=== PATIENT | female | born 1975 | race Caucasian/White ===

== ENCOUNTER → 2019-01-19 | Outpatient (CLI) | payer OTHER ==
[~2019-01-19] MED LIST: BUSP5 PO; Bentyl10 MG; LOSA25 PO; Zantac150 MG PO
[2019-01-21 14:07] LABS: HPV 16 Negative (Negative); HPV 18 Negative (Negative); HPV OTHER HR TYPES Positive (Negative)
== END ==
LOC: LAB 15:30 → LAB SHORT 15:30
PROVIDERS: Registered Nurse Community Health
DX: Z12.4 Encounter for screening for malignant neoplasm of cervix (principal); N89.8 Other specified noninflammatory disorders of vagina; Z98.890 Other specified postprocedural states
CPT/HCPCS: 87070; 87205; 87624; 87625; G0123

== ENCOUNTER 2019-02-02 07:11 | Day surgery (SDC) | payer OTHER ==
[~2019-02-02] VITALS: Ht 160 cm; Wt 74.8 kg
[2019-02-02] MEDS ORDERED: Zantac150 MG PO (07:58)
[2019-02-02] MEDS ORDERED: LOSA25 PO (07:59)
[2019-02-02] MEDS ORDERED: Bentyl10 MG (07:59)
[2019-02-02] MEDS ORDERED: BUSP5 PO (07:59)
--- NOTE | 2019-02-02 10:03 | NUR ---
02/02/19 1003 Shannon Chinchilla RECIEVED REPORT FROM [facility] 0930 PT INTO RECLINER WITHOUT DIFFICULTY. PT RATES ABD PAIN 6/10 AND THROAT PAIN 6/10. NO ORDERS AT THIS TIME. WARM BLANKET APPLIED AND PT DRINKING PO FLUIDS WITHOUT DIFFICULTY. PT PLEASANT, CONVERSATING WITH FRIEND AT CHAIRSIDE. DR COLVIN TALKED WITH PT AT 0945 AND CALLED IN A PRESCRIPTION TO HER PHARMACY FOR CRAMPING. AWARE OF ELEVATED BP. OK TO DC. PT STATED ABD PAIN DECREASED TO A 4 AFTER BELCHING. PT SBA TO CAR.
[2019-02-03 17:07] LABS: T-TRANSGLUTAMINASE (TTG) IGA <2 U/mL (0-3); T-TRANSGLUTAMINASE (TTG) IGG <2 U/mL (0-5)
== END 2019-02-02 09:58 | disposition home or self-care (01) ==
LOC: ORSCSDS 07:11
PROVIDERS: Internal Medicine Gastroenterology
PROC: 0DBN8ZX Excision of Sigmoid Colon, Via Natural or Artificial Opening Endoscopic, Diagnostic (ICD-10-PCS; principal; 2019-02-02 08:30)
PROC: 0DB98ZX Excision of Duodenum, Via Natural or Artificial Opening Endoscopic, Diagnostic (ICD-10-PCS; principal; 2019-02-02 08:30)
PROC: 0DB68ZX Excision of Stomach, Via Natural or Artificial Opening Endoscopic, Diagnostic (ICD-10-PCS; principal; 2019-02-02 08:30)
PROC: 0DBL8ZX Excision of Transverse Colon, Via Natural or Artificial Opening Endoscopic, Diagnostic (ICD-10-PCS; principal; 2019-02-02 08:30)
DX: R19.4 Change in bowel habit (principal); D12.3 Benign neoplasm of transverse colon; R10.9 Unspecified abdominal pain; K21.0 Gastro-esophageal reflux disease with esophagitis; K29.70 Gastritis, unspecified, without bleeding; D37.4 Neoplasm of uncertain behavior of colon; K29.80 Duodenitis without bleeding; K44.9 Diaphragmatic hernia without obstruction or gangrene; K57.30 Diverticulosis of large intestine without perforation or abscess without bleeding; K64.8 Other hemorrhoids; K64.4 Residual hemorrhoidal skin tags; I10 Essential (primary) hypertension; F17.210 Nicotine dependence, cigarettes, uncomplicated; Z79.899 Other long term (current) drug therapy
CPT/HCPCS: 83516; 88305; 88342; J0330; J0461; J2250; J2405; J2704; J7120